=== PATIENT | female | born 1940 | race Caucasian/White ===

== ENCOUNTER → 2018-02-28 11:01 | Outpatient (CLI) | payer SELFPAY ==
--- NOTE | 2018-02-28 11:31 | MRI_ITS ---
STUDY: MRI LUMBAR SPINE WITHOUT CONTRAST REASON FOR EXAM: Female, 78 years old. TECHNIQUE: Standardized fat and water weighted pulse sequences were obtained in the sagittal and axial planes. COMPARISON: None FINDINGS: T12-L1: Normal endplates. Normal disc height, hydration and morphology. Normal bilateral facet joints. Normal central canal and bilateral lateral recesses. Normal bilateral intervertebral neural foramina. Normal lumbar lordosis. There is no substantial scoliosis. Normal conus medullaris that terminates at the L1 level. Remote L2 compression fracture with anterior loss of height of 50% and minimal loss of posterior height. Mild retropulsion. L1-2: Bulging annulus and left foraminal disc protrusion with bilateral facet and ligamentum flavum hypertrophy. Mild bilateral foraminal stenoses. Mild left lateral recess stenosis. L2-3: Bulging annulus and bilateral facet and ligamentum flavum hypertrophy. Mild central canal stenosis. L3-4: Bulging annulus and bilateral facet and ligamentum flavum hypertrophy without compressive sequelae. L4-5: Bulging annulus and bilateral facet and ligamentum flavum hypertrophy and facet joint effusions. Moderate central canal stenosis and mild left foraminal stenosis. L5-S1: Bulging annulus and bilateral facet and ligamentum flavum hypertrophy and facet joint effusions. No compressive sequelae. 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 3.8 cm abdominal aortic aneurysm. Probable cholelithiasis. MRI/Spine Lumbar (Routine) IMPRESSION: Diffuse degenerative disc and facet disease as described. Moderate central canal stenosis at the L4-5 level. No evidence of nerve root impingement. Remote L2 compression fracture with mild retropulsion. 3.8 cm abdominal aortic aneurysm. Probable cholelithiasis. Electronically Signed: Tyson Jiménez MD at 13:22 EDT Tel , Service support ,
== END ==
PROVIDERS: Family Provider Family Medicine; PCP Family Medicine; Visit Provider Family Medicine
DX: M51.37 Other intervertebral disc degeneration, lumbosacral region (principal); M48.061 Spinal stenosis, lumbar region without neurogenic claudication; I71.4 Abdominal aortic aneurysm, without rupture
CPT/HCPCS: 72148